=== PATIENT | male | born 1945 | race Native Hawaiian/Other Pacific Islander ===

== ENCOUNTER 2019-10-19 22:20 | Emergency (ER) | payer OTHER ==
[~2019-10-19] VITALS: Ht 30.5 cm; Wt 0.5 kg
[2019-10-19 22:55] LABS: PLATELET COUNT 150 K/uL (142-355)
[2019-10-19 23:10] LABS: PARTIAL THROMBOPLASTIN TIME 25.8 SECONDS (24.5-33.6)
[2019-10-19 23:24] LABS: POTASSIUM 3.8 mmol/L (3.6-5.2); SODIUM 140 mmol/L (136-145)
[2019-10-20 05:35] VITALS: BP 159/74; TEMP 98.3
== END 2019-10-20 05:35 | disposition short-term general hospital (02) ==
LOC: ED 22:20 → EDBD 22:20 → ED 10-20 05:35
PROVIDERS: Hospitalist
PROC: 5A12012 Performance of Cardiac Output, Single, Manual (ICD-10-PCS; principal; 2019-10-19)
DX: R07.89 Other chest pain (principal); I46.9 Cardiac arrest, cause unspecified
CPT/HCPCS: 36415; 80053; 82550; 83880; 84484; 85027; 85610; 85730; 92950; 93005; 96365; 96374; 96375; 99284; 99285; J0171; J0282; J0461; J1940; J2270; J2405

== ENCOUNTER 2019-12-02 21:32 | Emergency (ER) | payer OTHER ==
[~2019-12-02] VITALS: Ht 172.7 cm; Wt 72.6 kg
[2019-12-02 21:40] VITALS: TEMP 97.8
[2019-12-02 23:00] VITALS: BP 140/83
== END 2019-12-02 23:00 | disposition home or self-care (01) ==
LOC: ED 21:32
PROC: 0T9B70Z Drainage of Bladder with Drainage Device, Via Natural or Artificial Opening (ICD-10-PCS; principal; 2019-12-02)
DX: R33.8 Other retention of urine (principal)
CPT/HCPCS: 51702; 81000; 99283

== ENCOUNTER 2019-12-07 07:26 | Emergency (ER) | payer OTHER ==
[~2019-12-07] VITALS: Ht 172.7 cm; Wt 72.6 kg
[2019-12-07 07:33] VITALS: BP 139/80; TEMP 98.9
== END 2019-12-07 08:10 | disposition home or self-care (01) ==
LOC: ED 07:26
DX: T83.9XXA Unspecified complication of genitourinary prosthetic device, implant and graft, initial encounter (principal); Y84.6 Urinary catheterization as the cause of abnormal reaction of the patient, or of later complication, without mention of misadventure at the time of the procedure; Y92.89 Other specified places as the place of occurrence of the external cause
CPT/HCPCS: 99282

== ENCOUNTER 2019-12-07 18:37 | Emergency (ER) | payer OTHER ==
[~2019-12-07] VITALS: Ht 172.7 cm; Wt 72.6 kg
[2019-12-07 20:05] VITALS: BP 129/86; TEMP 98.5
== END 2019-12-07 20:06 | disposition home or self-care (01) ==
LOC: ED 18:37
PROC: 0T9B70Z Drainage of Bladder with Drainage Device, Via Natural or Artificial Opening (ICD-10-PCS; principal; 2019-12-07)
DX: N40.1 Benign prostatic hyperplasia with lower urinary tract symptoms (principal); N13.8 Other obstructive and reflux uropathy; Z79.2 Long term (current) use of antibiotics
CPT/HCPCS: 51702; 99282